=== PATIENT | male | born 1955 | race Caucasian/White ===

== ENCOUNTER 2024-03-25 13:25 | Inpatient (IN) | payer MEDICARE, SELFPAY ==
[2024-03-25] VITALS (16 sets, daily range): BP systolic 101–131; BP diastolic 71–95; PULSE 2; BMI 20.5
--- NOTE | 2024-03-25 10:23 | ED.GENMED ---
History of Present Illness
General
Chief Complaint: Breathing Problem
Source: patient and ambulance crew
Exam Limitations: none
Time Seen by Provider: 03/25/24 10:19
Nursing documentation reviewed up to this point in time: agreed with
History of Present Illness
History of Present Illness:
68-year-old male with a past medical history of COPD, atrial fibrillation, polysubstance use who presents to the emergency department from home via EMS for evaluation of shortness of breath. Patient reports that last night around 6 PM he took his
dog for a walk and when he returned from the walk he was severely short of breath. He says that overnight symptoms worsened 'and I felt like I was going to because I could not breathe.' This morning decided to call EMS to come to the hospital.
He denies any chest pain. He has been coughing for the past few days he says�nonproductive cough. He says that last night he had some chills briefly but no significant fever or chills otherwise. Denies any swelling in the legs. He denies any
other complaints on review of systems. Per EMS on arrival he was hypoxic and labored breathing with significant wheezing; he was given 10 mg of IV Decadron, DuoNeb x 2, albuterol x 1. Patient reports slight subjective improvement.
Past History
Past History
ED Past Medical History: COPD and Other (MS)
ED Past Surgical History: Negative Cardiac
Social History
Tobacco: Smoker
Alcohol: Occasional
Drug: Former user
Personal:
Living: alone
Employment: Retired
Family History
Family History: Other (Noncontributory)
Review of Systems
Review of Systems
All Other Systems: ROS reviewed and negative except as documented in HPI and ROS
Constitutional: Reports chills; Denies fever
EENT: Denies sore throat or runny nose
Respiratory: Reports cough and trouble breathing
Cardiac: Denies chest pain or palpitations
ABD/GI: Denies abdominal pain, nausea or vomiting
: Denies dysuria, frequency or flank pain
Musculoskeletal: Denies edema, neck pain or back pain
Neurological: Denies dizzy or headache
Phy Exam
Physical Exam
Physical Exam:
General: Awake, alert, oriented x3; moderate respiratory distress
Head: Normocephalic, atraumatic
Eyes: Conjunctiva normal, sclera anicteric
Throat: Airway intact, handling secretions
Neck: Trachea midline, no JVD
Lungs: Patient is tachypneic, increased work of breathing, tripod/prefers upright position, speaking in 1-2 word sentences; he has diffuse bilateral wheezing with prolonged expiratory phase and diminished air movement throughout all lung cancino
Heart: Tachycardia with regular rhythm, no murmurs, gallops, or rubs
Abd: Soft, non distended, nontender
Neuro: No gross deficits
Extremities: No edema in extremities, equal pulses in all extremities
Scores
Heart Failure Risk
Heart Failure Risk Score: Not Applicable
Heart Score for Chest Pain Patients
STEMI patient?: Not applicable
Withdrawal Assessment of Alcohol
Withdrawal Assessment Completed?: Not applicable
Course
Orders/Labs/Results
Orders:
Orders
03/25/24 10:19
Electrocardiogram (*1) Urgent
Reason for Study: Shortness of Breath
EKG- Treatment ONCE
CR Chest Portable - 1 View Urgent
Comment:
Reason For Exam: sob
Reason Study Needs to be Portable: Unable to Transport
03/25/24 10:20
Ipratropium/Albuterol Sulfate [Duoneb] 3 ml INH R NOW STA
03/25/24 10:21
Bipap [RESP] Urgent
Patient to use own unit?: No
Inspiratory Pressure (cm H2O): 14
Expiratory Pressure (cm H2O): 5
03/25/24 10:38
COVID-19 Antigen Urgent
Source: Nasal Swab
Complete Blood Count/With Diff Urgent
Venous Blood Gas Urgent
%Oxygen/Room Air: 95
Influenza A+B Rapid Molecular Urgent
PILO Source: Nasal Swab
Specimen Description:
03/25/24 10:59
Comprehensive Metabolic Panel Urgent
NT-proBNP Urgent
Troponin I Urgent
03/25/24 11:15
Azithromycin 500 mg IVPB NOW Azithromycin 500 mg/250 ml [Zithromax Infusion] 500 mg in 250 ml IV NOW
CefTRIAXone [Rocephin] 1,000 mg IV NOW STA
03/25/24 11:30
Blood Culture Q30M
PILO Source: Blood/Venous
Specimen Description:
03/25/24 12:00
Blood Culture Q30M
PILO Source: Blood/Venous
Specimen Description:
Abnormal Lab Results
03/25/24
10:38
WBC 16.0 H 10^3/uL
(4.8-10.8)
RBC 4.19 L 10^6/uL
(4.70-6.10)
MCV 95.5 H fL
(80.0-94.0)
MCH 32.7 H pg
(27.0-31.0)
Abs Immat Gran (auto) 0.1 H 10^3/uL
(0-0.05)
Absolute Neuts (auto) 14.2 H 10^3/uL
(1.4-6.5)
Absolute Lymphs (auto) 0.5 L 10^3/uL
(1.2-3.4)
Absolute Monos (auto) 1.2 H 10^3/uL
(0.1-0.6)
Neutrophils % 88.5 H %
(42.2-75.2)
Lymphocytes % 3.4 L %
(20.5-51.1)
VBG pCO2 53 H mmHg
(35-48)
VBG pO2 70 H mmHg
(30-50)
VBG HCO3 28.6 H mmol/L
(22-27)
03/25/24 10:38
Vital Signs
Initial and Last Documented VS:
Initial Vital Signs
Pulse Resp Pulse Ox
106 22 93
03/25/24 10:17 03/25/24 10:17 03/25/24 10:17
Last Documented Vital Signs
Pulse Resp BP Pulse Ox
106 22 131/95 93
03/25/24 10:17 03/25/24 10:17 03/25/24 10:23 03/25/24 10:17
MDM/Problems Addressed
Differential Diagnosis Includes:
COPD exacerbation/bronchitis, CHF, pneumonia
MDM/Problems Addressed:
68-year-old male presents to the ER via EMS in moderate respiratory distress complaining of severe shortness of breath. He did receive Decadron, DuoNeb x 2, albuterol x 1 prehospital. He was hypoxic in the field received supplemental oxygen. On
arrival here oxygen low normal on room air, he is tachypneic with increased work of breathing as above. Exam as above. IV placed labs sent off including a CBC and a CMP, proBNP, troponin. Swab for COVID influenza. Call for stat chest x-ray.
Obtain EKG. Treat with additional DuoNeb. Placed on BiPAP. Send venous blood gas. Monitor closely reassess after the above.
Clinical reassessment patient appears much more comfortable on BiPAP. Still with significant wheezing. Oxygenation acceptable. Reviewed initial labs his CBC shows a leukocytosis to 16; chest x-ray reviewed by me shows no pneumonia or
pneumothorax. Nevertheless with leukocytosis will send off blood cultures due to multiple SIRS criteria. Can cover with antibiotic for possible occult pneumonia. ABG reviewed, pCO2 53. Will plan to admit for continued management of suspected
acute respiratory failure with hypoxia and hypercapnia and COPD exacerbation.
Chronic conditions affecting care:
COPD, atrial fibrillation
*Radiology
Radiology exam reviewed: preliminary read by ED provider and radiology read reviewed
*Pulse Oximetry
Patient hypoxic: no
*EKG
Interpreted by ED Provider?: Yes
Heart Rate: 106
Rate: tachycardiac
Rhythm: sinus tachycardia
[place]: right axis deviation
Interval: normal interval
QRS Pattern: normal QRS
Ischemia: ST depression (Inferior)
*Critical Care Note
Total Time (30-74mins, 75-104mins- exclusive of procedures): 30
comment:
Critical care statement: A total of 30 minutes of critical care time was provided for this patient. This includes management of unstable vital signs, evaluation of the patient at bedside, frequent reassessment, discussion with
consultants/hospitalist, and review of pertinent medical records. This time was separate from time utilized to perform any aforementioned documented procedures
Data Reviewed
Review of Other/Old Records Reveals: Labs and Records
Source: patient, records and ambulance crew
Patient Management
Discussion with other providers: Hospitalist (Discussed with hospitalist)
Escalation/DeEscalation of care consider admission/obs:
Admission indicated
ED Attending Note
-
Portions of this chart may have been created with voice recognition software.� Occasional wrong word or��sound alike� substitutions may have occurred due to the inherent limitations of voice recognition software.
Discharge Plan
Departure
Patient Disposition: Admit
Date of Disposition: 03/25/24
Time of Disposition: 11:17
Admit to doctor: [place]
Presentation/result/management discussed w/ accepting MD/DO: Hospitalist
Discharge Problem:
Acute respiratory failure with hypoxia and hypercapnia, COPD exacerbation
Prescriptions:
No Action
clonazepam 1 MG tablet
2 mg PO HS
Patient Comments:
03/05/2020: last filled 02/09/20, 90 tabs for 30 days from [facility]
buprenorphine-naloxone 8-2 mg Tablet, Sublingual
0.5 tab SUBLINGUAL DAILY
Interventions
Interventions:
*Risk Screen - Suicide Last Done: 03/25/24 10:30
*General Assessment Last Done: 03/25/24 10:30
*Neglect/Abuse Screening Last Done: 03/25/24 10:30
ED- Fall Risk Assessment Last Done: 03/25/24 10:21
*ED COVID-19 Vaccine History Last Done: 03/25/24 10:30
Discharge Date and Time
Print Language: NAURUAN
[2024-03-25] MEDS: DUONEB 3 ML INH ×2 (10:34→19:13)
[2024-03-25 10:48] LABS: % Basophils 0.2 % (0-2); % Immature Granulocytes 0.4 % (0-0.5); % Lymphocytes 3.4 % (20.5-51.1); % Monocytes 7.5 % (1.7-9.3); % Neutrophils 88.5 % (42.2-75.2); Absolute Immature Granulocytes 0.1 10^3/uL (0-0.05); Absolute Lymphocytes 0.5 10^3/uL (1.2-3.4); Absolute Monocytes 1.2 10^3/uL (0.1-0.6); Absolute Neutrophils 14.2 10^3/uL (1.4-6.5); Hemoglobin 13.7 g/dL (13.0-18.0); Mean Corp Hgb Conc. 34.3 g/dL (33.0-37.0); Mean Corpuscular Hgb 32.7 pg (27.0-31.0); Mean Corpuscular Volume 95.5 fL (80.0-94.0); Mean Platelet Volume 9.2 fL (7.4-10.4); Nucleated Red Blood Cells % 0 % (-); Platelet Count 209 10^3/uL (130-400); Red Blood Cell Count 4.19 10^6/uL (4.70-6.10); Red Cell Dist. Width 11.9 % (11.5-14.5)
[2024-03-25 10:50] LABS: Venous Blood Gas B.E. 1.7 mmol/L (-4 to +4); Venous Blood Gas HCO3 28.6 mmol/L (22-27); Venous Blood Gas O2 Sat % 94.6 %; Venous Blood Gas pCO2 53 mmHg (35-48); Venous Blood Gas pH 7.34 (7.32-7.43); Venous Blood Gas pO2 70 mmHg (30-50)
[2024-03-25 10:51] LABS: Venous Blood Gas O2 Therapy 95
[2024-03-25 11:06] LABS: COVID-19 Antigen Negative (Negative)
[2024-03-25] MEDS: ROCEPHIN 1000 MG IV (12:07)
[2024-03-25] MEDS: ZITHROMAX INFUSION 250 IV (12:13)
[2024-03-25 12:18] LABS: ALT (SGPT) 21 U/L (0-50); AST (SGOT) 32 U/L (17-59); Albumin 4.7 g/dl (3.5-5.0); Alkaline Phosphatase 76 U/L (38-126); Blood Urea Nitrogen 14 mg/dl (9-20); Calcium 9.2 mg/dl (8.4-10.2); Carbon Dioxide 29 mmol/L (22-30); Chloride 100 mmol/L (98-107); Estimated Creatinine Clearance 108 ml/min; Glucose 150 mg/dl (70-99); Potassium 4.2 mmol/L (3.5-5.1); Sodium 137 mmol/L (135-145); Total Bilirubin 1.5 mg/dl (0.2-1.3); Total Protein 7.2 g/dl (6.3-8.2); eGFR > 60.00
[2024-03-25 12:28] LABS: NT-proBNP 735 pg/ml; Troponin I < 0.012 ng/ml
--- NOTE | 2024-03-25 13:07 | HPS.HSE ---
Family Physician
-
Family Physician: * NONE
Chief Complaint
-
shortness of breath
History of Present Illness
68-year-old male past medical history of tobacco abuse who is presenting from home with complaints of shortness of breath. Patient reports last night around 6 PM he took his dog out for a walk and upon returning he felt significantly short of
breath. Patient stated he is shortness of breath was so severe he felt like he was going to . Patient slept overnight. Stated this morning he was still feeling severely short of breath and called EMS. States of shortness of breath with
intermittent productive cough. Phlegm with mild brown color. States of some chills overnight. No fevers. Denies any chest pain. Denies any lower extremity swelling. Denies any PND orthopnea. Continues to smokes multiple cigarettes a day.
Said he had 2-3 beers last night. Also states of history of multiple sclerosis and follows up with Dr. Hernandez as outpatient. En route to the EMS patient received 10 mg IV Decadron and bronchodilators. Patient was placed on BiPAP in the ER and stated
his breathing is slowly improving.
Medical History
Past Medical History
Past Medical History: Reports Other
Additional Past Medical History:
Multiple sclerosis
Hx of polysubstance abuse
Tobacco abuse
Paroxysmal atrial fibrillation
Hx of pericarditis
Past Surgical History: Reports None
Social History
Tobacco: Smoker
Alcohol: Occasional (multiple times week)
Drug: Former User
Family History
Family History: Not pertinent
Allergies / Home Medications
Allergies reflects when Allergies were last updated in [employer].
Home Medications with original date entered in [employer]
Allergy/Medication List:
Allergies
Allergy/AdvReac Type Severity Reaction Status Date / Time
NKA - No Known Allergies Allergy Unknown Uncoded 03/25/24 10:35
Home Medications
clonazepam 1 mg tablet 2 mg PO HS 03/05/20
buprenorphine 8 mg-naloxone 2 mg sublingual tablet 0.5 tab sublingual DAILY 03/25/24
clonazepam 1 mg tablet 1 mg PO DAILYPRN PRN ANXIETY 03/25/24
Review of Systems
-
History Source: Patient
A 12 point ROS was completed and negative except as noted: Yes
Physical Exam
Vital Signs
Vital Signs
Pulse Resp BP Pulse Ox
90 15 102/75 95
03/25/24 12:00 03/25/24 12:00 03/25/24 12:00 03/25/24 12:00
Physical Exam
General: Respiratory Distress, Appears Chronically Ill and Other (on bipap)
HEENT: NormoCephalic, Moist mucous membranes and Atraumatic
Respiratory: Wheezes (severe b/l exp wheezing. no stridor. )
Cardiac: S1/S2 and Regular Rhythm; No Murmur or Rub
GI: Soft, Non Tender, Non Distended and Normal Bowel Sounds; No Organomegaly
Rectal: Deferred by Provider
Musculoskeletal: No Clubbing, No Cyanosis and No Edema
Skin: No Rash
Neuro: Awake, Alert, Oriented, AO x 3 and Nonfocal/grossly intact
Psych: Calm
Laboratory Results
-
03/25/24 10:38
03/25/24 11:40
Laboratory Results
Total Bilirubin 1.5 mg/dl (0.2-1.3) H 03/25/24 11:40
AST 32 U/L (17-59) 03/25/24 11:40
ALT 21 U/L (0-50) 03/25/24 11:40
Alkaline Phosphatase 76 U/L (38-126) 03/25/24 11:40
Troponin I < 0.012 ng/ml 03/25/24 11:40
Data Reviewed
-
Diagnostic Radiology: Image Personally Visualized and interpreted, Report Reviewed by me and Discussed with Patient
Lab Data: Labs Reviewed by me and Discussed with Patient
Impression/Plan
-
#Acute hypoxic and hypercapnic respiratory failure
#Acute COPD exacerbation
Chest x-ray on admission done negative for pleural effusion or pneumothorax or infiltrate.
Start patient on 6 mg Decadron every 12 hours. Received 10mg Decadron en-route via EMS.
Currently on BiPAP. Patient can take breaks for meals off BiPAP.
Continue with 12/5 BiPAP setting
IF Patient with severe tachypnea, worsening hypoxemia or getting tired may require intubation.
Start patient on bronchodilators standing and as needed
Start patient on azithromycin
Sputum sample
proBNP 735. Troponin negative.
Pulmonary evaluation
#Tobacco abuse
#Alcohol abuse
#History of polysubstance abuse
Counseled on tobacco and alcohol complete cessation
Alcohol withdrawal protocol
Refused nicotine patch
Continue with Suboxone
#Paroxysmal atrial fibrillation
#Hx of pericardial effusion/pericarditis
not on any rate control or anticoagulation. Monitor on telemetry.
#Multiple sclerosis--continue with Klonopin for spasms
DVT prophylaxis with Lovenox
I spent a total of 82 minutes with the patient or on the floor. More than 50% of this time involved counseling and coordination of care.
--- NOTE | 2024-03-25 15:16 | EDRN ---
the pt is requesting to eat food and drink water stating 'i have not eaten or drank anything since yesterday. I also need my Suboxone. If I don't have it I will get very sick.' The pt is currently on BIPAP Oxygen mask. This COURT CLERK contacted the
admitting provider Dr Pierre who confirmed this pt can eat regular diet and the pt can have his medication as is ordered in his admission orders. this COURT CLERK contact respiratory therapist for assistance and also contact pharmacy to send up this pts
medication.
--- NOTE | 2024-03-25 15:29 | EDRN ---
Respiratory therapist removed this pts BIPAP and placed this pt on 4L NC O2 at this time. pt was provided a boxed lunch and water to drink per this pts request and per admission orders
[2024-03-25] MEDS: SUBUTEX 4 MG SL (15:30)
[2024-03-25 16:19] LABS: Alcohol None Detected
[2024-03-25] MEDS: DUONEB INH (17:17)
[2024-03-25] MEDS: LOVENOX SC (17:50)
[2024-03-25 18:13] LABS: GGTP 21 U/L (15-73)
[2024-03-25 18:20] LABS: B-Hydroxybutyrate 0.14 mmol/L (0.02-0.27)
[2024-03-25] MEDS: THIAMINE INJECTION 200 MG IV (20:21)
[2024-03-25] MEDS: KLONOPIN 2 MG PO (21:47)
[2024-03-26] VITALS (11 sets, daily range): BP systolic 101–137; BP diastolic 60–77; PULSE 81; O2SAT 94
[2024-03-26 04:19] LABS: Urine Albumin Trace (Neg - Trace); Urine Bilirubin Negative (Negative); Urine Character Clear (Clear); Urine Color Yellow; Urine Glucose Negative (Negative); Urine Ketone 1+ (Negative); Urine Leukocyte Negative (Negative); Urine Nitrite Negative (Negative); Urine Occult Blood Negative (Negative); Urine Urobilinogen Negative (Neg - 1+)
[2024-03-26 04:21] LABS: Amphetamines Negative (Negative); Barbiturates Negative (Negative); Benzodiazepines Positive (Negative); Buprenorphine Positive (Negative); Cocaine Negative (Negative); Marijuana Positive (Negative); Methadone Negative (Negative); Methamphetamines Negative (Negative); Opiates Negative (Negative); Phencyclidine Negative (Negative); Tricyclic Antidepressants Negative (Negative)
--- NOTE | 2024-03-26 04:31 | PTCARENOTE ---
Pt resting comfortably in bed. AAOx3. SaO2 97% on 2LNC. FELDMAN, lungs with scattered rhonchi, inspiratory/expiratory wheezes, moist, nonproductive cough. Reports feeling much improved since yesterday. Call [facility] and belongings within reach. Able to
make needs known. Care ongoing.
[2024-03-26 04:33] LABS: Fentanyl, Urine Negative (Negative)
[2024-03-26 04:37] LABS: % Basophils 0.1 % (0-2); % Immature Granulocytes 0.7 % (0-0.5); % Lymphocytes 3.3 % (20.5-51.1); % Neutrophils 90.9 % (42.2-75.2); Absolute Immature Granulocytes 0.1 10^3/uL (0-0.05); Absolute Lymphocytes 0.6 10^3/uL (1.2-3.4); Absolute Monocytes 0.9 10^3/uL (0.1-0.6); Absolute Neutrophils 16.1 10^3/uL (1.4-6.5); Hematocrit 43.6 % (39.0-52.0); Hemoglobin 14.5 g/dL (13.0-18.0); Mean Corp Hgb Conc. 33.3 g/dL (33.0-37.0); Mean Corpuscular Hgb 32.8 pg (27.0-31.0); Mean Corpuscular Volume 98.6 fL (80.0-94.0); Mean Platelet Volume 9.8 fL (7.4-10.4); Nucleated Red Blood Cells % 0 % (-); Platelet Count 217 10^3/uL (130-400); Red Blood Cell Count 4.42 10^6/uL (4.70-6.10); Red Cell Dist. Width 12.1 % (11.5-14.5); White Blood Cell Count 17.7 10^3/uL (4.8-10.8)
[2024-03-26 04:47] LABS: INR 1.08; PT 14.3 Sec (11.4-14.6)
[2024-03-26 04:48] LABS: APTT 32.3 Sec (23.4-35.0)
[2024-03-26 05:00] LABS: Blood Urea Nitrogen 16 mg/dl (9-20); Calcium 9.4 mg/dl (8.4-10.2); Carbon Dioxide 29 mmol/L (22-30); Chloride 101 mmol/L (98-107); Estimated Creatinine Clearance 108 ml/min; Glucose 128 mg/dl (70-99); Phosphorus 3.4 mg/dl (2.5-4.5); Potassium 4.8 mmol/L (3.5-5.1); Sodium 141 mmol/L (135-145); eGFR > 60.00
[2024-03-26] MEDS: DUONEB 3 ML INH ×4 (08:08→20:43)
[2024-03-26] MEDS: ZITHROMAX 255 MG IV (08:17)
[2024-03-26] MEDS: SUBUTEX 4 MG SL (08:19)
[2024-03-26] MEDS: FOLVITE 1 MG PO (08:20)
[2024-03-26] MEDS: THIAMINE INJECTION 200 MG IV ×2 (08:20→22:09)
[2024-03-26] MEDS: DECADRON 6 MG IV ×2 (08:20→22:07)
[2024-03-26] MEDS: KLONOPIN 1 MG PO (10:01)
--- NOTE | 2024-03-26 11:37 | W.PN.HOSP.TC ---
Today's Communication/Plan
-
Continue with systemic corticosteroid
Continue with bronchodilators
Continue to wean oxygen as tolerated
BiPAP nightly as needed
Transfer out of IMU
Assessment / Plan
Assessment / Plan
General: Respiratory Distress, Appears Chronically Ill, less tachypneic today
HEENT: NormoCephalic, Moist mucous membranes and Atraumatic
Respiratory: Wheezes (severe b/l wheezing. no stridor. )
Cardiac: S1/S2 and Regular Rhythm; No Murmur or Rub
GI: Soft, Non Tender, Non Distended and Normal Bowel Sounds; No Organomegaly
Rectal: Deferred by Provider
Musculoskeletal: No Clubbing, No Cyanosis and No Edema
Skin: No Rash
Neuro: Awake, Alert, Oriented, AO x 3 and Nonfocal/grossly intact
Psych: Calm
#Acute hypoxic and hypercapnic respiratory failure
#Acute COPD exacerbation
Chest x-ray on admission done negative for pleural effusion or pneumothorax or infiltrate.
Start patient on 6 mg Decadron every 12 hours. Received 10mg Decadron en-route via EMS.
BiPAP as needed
Improvement with IV steroids.
Start patient on bronchodilators standing and as needed
Start patient on azithromycin
Sputum sample
proBNP 735. Troponin negative.
Pulmonary evaluation
#Tobacco abuse
#Alcohol abuse
#History of polysubstance abuse
Counseled on tobacco and alcohol complete cessation
Alcohol withdrawal protocol
Refused nicotine patch
Continue with Suboxone
#Paroxysmal atrial fibrillation
#Hx of pericardial effusion/pericarditis
not on any rate control or anticoagulation. Monitor on telemetry.
#Multiple sclerosis--continue with Klonopin for spasms
DVT prophylaxis with Lovenox
Anticipated Discharge: > 48 hours
Subjective/Interval History
-
Date of Service: March 26, 2024
States feeling better compared to yesterday
remains on oxygen
remains with productive cough
Objective Data
-
Labs:
Laboratory Results
03/26/24
04:01
WBC 17.7 H
Hgb 14.5
Hct 43.6
Plt Count 217
PT 14.3
INR 1.08
APTT 32.3
Sodium 141
Potassium 4.8
Chloride 101
Carbon Dioxide 29
BUN 16
Creatinine 0.5 L
Glucose 128 H
Calcium 9.4
Vital Signs:
Vital Signs
Temp Pulse Resp BP Pulse Ox
97.0 F 77 14 106/77 92
03/26/24 07:30 03/26/24 11:00 03/26/24 11:00 03/26/24 10:00 03/26/24 11:00
I&O
03/25/24 03/26/24 03/27/24
06:59 06:59 06:59
Intake Total 350 / 350
Output Total 400 / 400
Balance -400 / -400 350 / 350
Data Reviewed
-
Total Time Spent with Patient (in minutes): 55
--- NOTE | 2024-03-26 11:39 | CM ---
Patient with Hx MS, tobacco use, polysubstance abuse. O2 2L per nurse. Declined BiPAP HS. Receiving IV Abx, Duonebs, IV Decadron. MSAS 0 per nursing.
Met with patient who resides alone in a 2nd floor walk up apartment.
He was independent in ADLs and ambulation.
The patient says he walks 1-2 miles/day in a park with his dog, and uses a walking stick.
Patient admits to a fall about 2-3 months ago.
No food/housing/utility/transport insecurities.
Patient states he receives SS and a [employer].
He has no car/doesn't drive however 2 daughters Alisa & Lawanda drive him as needed.
Daughter Alisa takes him food shopping.
His ex- also helps him at times.
Patient mentions daughter Meera who is nurse with [employer], lives in [facility] - she was on the phone with him when CM entered room.
Patient may stay with Alisa at discharge - she works from home.
DME - [facility]
No prior VN or SNF.
PCP - Dr Jim at [facility]
Pharmacy - [facility]
CM Consult: Substance Abuse
Patient denies any active issues with alcohol/drugs.
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
Patient volunteers that he sees a doc at a clinic in [place] for his Subutex.
[facility]
Request to Dr Pierre for PT Eval due to Dx MS with fall.
Plan follow up after seen by PT/OT.
--- NOTE | 2024-03-26 12:56 | CON.PUL ---
Consultation
Consultation Request
Date/Time Consultation Requested: 03/25/2024
Date/Time Consultation Performed: 03/26/2024
Requesting Provider: Dr. Pierre
Performing Provider: Dr. Jose Nino
Reason for Consultation: Acute exacerbation of COPD
Medical History
-
History of Present Illness:
68-year-old male with past medical history significant for tobacco abuse presented from home complaining of shortness of breath with exertion that was progressive. Symptoms started the night prior to admission while he was walking his dog.
Shortness of breath was severe that became to minimal effort. He went to bed but woke up still short of breath in the morning and called EMS for evaluation.
Reports intermittent phlegm production of mild brown-colored sputum. Denies any fevers. Reports some chills prior to admission.
Denies lightheadedness, palpitations, PND, orthopnea leg edema.
He continues to drink beer daily. Used to smoke cigarettes daily prior to admission.
Patient has history of multiple sclerosis and follows up with neurology locally.
Due to increased work of breathing he was placed on BiPAP in the emergency room.
We were consulted for further evaluation.
Past Medical History
Past Medical History: Other (See assessment and plan)
Social History
Tobacco: Smoker
Alcohol: Occasional (Multiple times per week/beer)
Drug: Former User
Family History
Family History: Reviewed & Not Pertinent
Allergies / Home Medications
Allergies
Allergy/AdvReac Type Severity Reaction Status Date / Time
NKA - No Known Allergies Allergy Unknown Uncoded 03/25/24 10:35
Home Medications
�Medication �Instructions �Recorded �Confirmed �Last Taken �Type
clonazepam 1 mg tablet 2 mg PO HS Mental Health/Anxiety 03/05/20 03/25/24 03/05/20 History
buprenorphine 8 mg-naloxone 2 mg 0.5 tab sublingual DAILY withdrawal 03/25/24 03/25/24 Unknown History
sublingual tablet
clonazepam 1 mg tablet 1 mg PO DAILYPRN PRN ANXIETY 03/25/24 03/25/24 Unknown History
Review of Systems
-
History Source: Patient
All other systems: Negative unless noted
Vitals / Labs / Diagnostic Testing
Vital Signs
Temp Pulse Resp BP Pulse Ox
97.7 F 76 14 106/77 94
03/26/24 11:42 03/26/24 11:49 03/26/24 11:49 03/26/24 10:00 03/26/24 11:49
Lab Data
03/26/24 04:01
03/26/24 04:01
Laboratory Results
03/26/24
04:01
PT 14.3
INR 1.08
APTT 32.3
Microbiology
03/26/24 08:41 Sputum Gram Stain - Preliminary
03/25/24 11:40 Blood/Venous Blood Culture - Preliminary
No Growth in 24 hours- Final report to follow
03/25/24 11:40 Blood/Venous Blood Culture - Preliminary
No Growth in 24 hours- Final report to follow
03/25/24 10:38 Nasal Swab Influenza Types A & B ([facility]) - Final
Negative for Influenza A & B, NAAT
Negative results must be combined with clinical observations
and patient history.
Nucleic Acid Amplification test (NAAT)performed on the
[employer] platform.
Diagnostic Testing:
Physical Exam
-
HEENT: Normocephalic
Cardiovascular: S1/S2
Respiratory: Wheeze (Expiratory bilaterally) and Rhonchi
GI: Soft and Non Distended
Neurology: Awake, Alert, AO x 3 and No Motor Deficits
Skin: Warm
General: Comfortable and Other ( able to speak in full sentences)
Assessment
-
68-year-old man who is a smoker, prior emphysema on CAT scan in 2019 not on inhalers, came complaining of 1 day of shortness of breath that was progressive to minimal effort. Found to have increased work of breathing and bronchospasm in the
emergency room. Required BiPAP therapy. We were consulted for evaluation
Acute respiratory distress due to acute hypoxemic and hypercapnic respiratory failure requiring noninvasive mechanical ventilation
VBG 03/25/2024 7.34/53/70
UDS positive for benzos and marijuana/buprenorphine
Acute exacerbation of COPD
Chest x-ray: Reviewed no acute infiltrates-hyperinflation.
Normal proBNP
Conditions present prior admission:
Emphysema based on CT chest from 2019: Moderate in degree back in 2020. Upper and lower bronchial thickening. No lung nodules at that time. Moderate pericardial effusion was noted at that time.
Multiple sclerosis per patient report
Tobacco abuse
Almost daily beer use
Former drug user
Echocardiogram in 2020: Normal LVEF. Normal right ventricular size and function. Small pericardial effusion without evidence of hemodynamic compromise. Dilated aortic root 4. 1 cm
Assessment and plan:
Clinical picture is consistent with acute exacerbation of COPD: So far no evidence for infection.
VBG suggest slight hypercapnia. BNP without suggestion of chronic CO2 retention, there is no evidence for compensatory metabolic alkalosis.
Chest x-ray is clear-hyperinflation with flattened diaphragms.
COVID and influenza negative
Afebrile
Agree with current care with IV dexamethasone
DuoNeb 4 times a day
Smoking cessation encouraged
Agree with a course of azithromycin, can transition to oral and complete 5 days
Sputum culture if possible-pending
Blood cultures negative
-
No longer any increased work of breathing but remains bronchospastic
Mental status is normal
Discontinue BiPAP. No longer needed
Oxygen supplementation to maintain pulse ox above 90%, currently on 2 L. Home oxygen assessment prior to discharge
-
Recommend outpatient pulmonary follow-up.
Patient states that he usually does not follow-up with doctors
Does report exertional dyspnea with hills otherwise able to perform activities of daily without restriction. He was not aware of emphysema on CAT scan.
In 2020 CAT scan demonstrated moderate emphysematous changes. No follow-up with pulmonary.
With benefit from lung cancer screening as well as pulmonary function testing-information will be left in the chart. He will decide at some point whether he will follow-up.
Understands progressive lung disease with ongoing smoking.
Information will be left in the chart if patient would like to follow-up.
-
Smoking cessation encouraged.
-
Monitor for withdrawal of alcohol.
-
Will follow
--- NOTE | 2024-03-26 16:05 | PTCARENOTE ---
Called report to receiving RN on [facility]. Patient on 2L NC, other vital signs stable. Pt conversing with family member in room, able to get oob to toilet and sit in chair. Worked with PT/OT this shift. RN provided education on plan of care and
medications for this shift and going forward. Pt endorsed motivation to carry out cessation of smoking to RN. RN offered to reach out to MD to order nicotine patch for patient, but patient declined offer.
[2024-03-26] MEDS: LOVENOX SC (17:43)
[2024-03-26] MEDS: KLONOPIN 2 MG PO (22:07)
[2024-03-27 03:28] VITALS: BP 109/73
[2024-03-27 07:00] VITALS: BP 104/67
[2024-03-27] MEDS: DUONEB 3 ML INH ×4 (08:03→20:31)
[2024-03-27 08:40] VITALS: PULSE 76; O2SAT 93
[2024-03-27 08:44] LABS: % Basophils 0.1 % (0-2); % Immature Granulocytes 0.5 % (0-0.5); % Lymphocytes 3.5 % (20.5-51.1); % Monocytes 2.3 % (1.7-9.3); % Neutrophils 93.6 % (42.2-75.2); Absolute Immature Granulocytes 0.1 10^3/uL (0-0.05); Absolute Lymphocytes 0.6 10^3/uL (1.2-3.4); Absolute Monocytes 0.4 10^3/uL (0.1-0.6); Absolute Neutrophils 17.1 10^3/uL (1.4-6.5); Hematocrit 38.1 % (39.0-52.0); Hemoglobin 12.6 g/dL (13.0-18.0); Mean Corp Hgb Conc. 33.1 g/dL (33.0-37.0); Mean Corpuscular Hgb 32.6 pg (27.0-31.0); Mean Corpuscular Volume 98.4 fL (80.0-94.0); Nucleated Red Blood Cells % 0 % (-); Platelet Count 224 10^3/uL (130-400); Red Blood Cell Count 3.87 10^6/uL (4.70-6.10); Red Cell Dist. Width 12.4 % (11.5-14.5); White Blood Cell Count 18.3 10^3/uL (4.8-10.8)
[2024-03-27 09:11] LABS: Blood Urea Nitrogen 23 mg/dl (9-20); Carbon Dioxide 27 mmol/L (22-30); Chloride 102 mmol/L (98-107); Estimated Creatinine Clearance 108 ml/min; Glucose 117 mg/dl (70-99); Potassium 4.6 mmol/L (3.5-5.1); Sodium 138 mmol/L (135-145); eGFR > 60.00
[2024-03-27] MEDS: DECADRON 6 MG IV ×2 (10:07→21:00)
[2024-03-27] MEDS: FOLVITE 1 MG PO (10:08)
[2024-03-27] MEDS: THIAMINE INJECTION 200 MG IV ×2 (10:09→21:00)
[2024-03-27] MEDS: SUBUTEX 4 MG SL (10:11)
[2024-03-27] MEDS: ZITHROMAX INFUSION 250 IV (10:14)
--- NOTE | 2024-03-27 11:14 | W.PN.PUL.V3 ---
Today's Communication / Plan
-
No change in steroids.
Continue nebulizers.
Finite course of antibiotics.
Wean oxygen
Assessment
-
68-year-old man who is a smoker, prior emphysema on CAT scan in 2020 not on inhalers, came complaining of 1 day of shortness of breath that was progressive to minimal effort. Found to have increased work of breathing and bronchospasm in the
emergency room. Required BiPAP therapy. We were consulted for evaluation
Acute respiratory distress due to acute hypoxemic and hypercapnic respiratory failure requiring noninvasive mechanical ventilation
VBG 03/25/2024 7.34/53/70
UDS positive for benzos and marijuana/buprenorphine
Acute exacerbation of COPD
Chest x-ray: Reviewed no acute infiltrates-hyperinflation.
Normal proBNP
Conditions present prior admission:
Emphysema based on CT chest from 2019: Moderate in degree back in 2020. Upper and lower bronchial thickening. No lung nodules at that time. Moderate pericardial effusion was noted at that time.
Multiple sclerosis per patient report
Tobacco abuse
Almost daily beer use
Former drug user
Echocardiogram in 2020: Normal LVEF. Normal right ventricular size and function. Small pericardial effusion without evidence of hemodynamic compromise. Dilated aortic root 4. 1 cm
Plan
Respiratory status slowly improving but still tenuous with significant wheezing.
Supplemental oxygen as needed..
And IV/BiPAP as needed-no longer requiring
Assess discharge supplemental oxygen needs the time of discharge-patient disheartened, however, I explained that usually we can wean this off over several weeks and hopefully we can him back to his baseline-walking his dog 2 miles a day.
Decadron 6 mg IV every 12 hours.
Duo nebs.
Aspiration precautions.
Mucolytic's
Antitussives if needed.
Cultures reviewed.
Viral tests negative.
Agree with course of azithromycin-complete 5 days
Monitor for alcohol withdrawal
DVT prophylaxis-on Lovenox.
Nutrition
Early mobilization.
Outpatient pulmonary hphlde-uf-OMTa, inhalers, wean oxygen and, smoking cessation counseling, yearly low-dose lung cancer screening. CT, etc.
Subjective Data
-
Date of Service:
Date of Service: March 27, 2024
Chief Complaint: Pulmonary Follow Up and Dyspnea Follow Up
Subjective:
Still significant wheezing and shortness of breath with exertion, though recovery is faster, no chest pain, minimal productive cough, no pleurisy, no abdominal pain, or increased leg swelling.
Review of Systems
General: Other (per HPI)
Objective Data
Data Reviewed
Vital Signs / I&O:
Vital Signs
Temp Pulse Resp BP Pulse Ox
98.2 F 64 18 104/67 92
03/27/24 07:00 03/27/24 07:00 03/27/24 07:00 03/27/24 07:00 03/27/24 07:00
Intake and Output
03/26/24 03/27/24 03/28/24
06:59 06:59 06:59
Intake Total 1890 / 1890
Output Total 400 / 400 1200 / 1200
Balance -400 / -400 690 / 690
SaO2: 92
Nasal Cannula flow liters per minute: 1
Physical Exam
General: Respiratory Distress (n) and Comfortable
HEENT: Moist Mucous Membranes
Cardiovascular: Regular Rhythm
Respiratory: Clear ( diminished breath sounds, hyperinflation and prolonged expiratory time), Wheeze ( expiratory), Crackles (n), Rhonchi (n), Non-Labored Respirations, Accessory Resp Muscle Use (n) and Stridor (n)
GI: Soft, Non Distended and Non Tender
Neurology: Awake and No Motor Deficits
Skin: Warm, Good Color, Cyanosis (n), Jaundice (n) and Rash (n)
Labs/Micro/Reports
Lab Data
03/27/24 06:47
03/27/24 06:47
Microbiology
03/26/24 08:41 Sputum Respiratory Culture - Preliminary
Usual Respiratory Joan
03/26/24 08:41 Sputum Gram Stain - Preliminary
03/25/24 11:40 Blood/Venous Blood Culture - Preliminary
No Growth in 24 hours- Final report to follow
03/25/24 11:40 Blood/Venous Blood Culture - Preliminary
No Growth in 24 hours- Final report to follow
03/25/24 10:38 Nasal Swab Influenza Types A & B ([facility]) - Final
Negative for Influenza A & B, NAAT
Negative results must be combined with clinical observations
and patient history.
Nucleic Acid Amplification test (NAAT)performed on the
[employer] platform.
[2024-03-27 11:39] VITALS: BP 102/64
[2024-03-27 15:34] VITALS: BP 101/61
--- NOTE | 2024-03-27 16:47 | CM ---
Chart reviewed and patient to return to home when stable, shannon does not have a PCP and states he does not feel he needs visiting nurses at discharge.
Plan; Home when stable.
[2024-03-27] MEDS: LOVENOX 40 MG SC (18:03)
--- NOTE | 2024-03-27 18:05 | W.PN.HOSP.TC ---
Today's Communication/Plan
-
marked improvement past 24 hrs, continue current Rx
Assessment / Plan
Assessment / Plan
#Acute hypoxic and hypercapnic respiratory failure
markedly improved past 24 hrs
#Acute COPD exacerbation
Chest x-ray on admission done negative for pleural effusion or pneumothorax or infiltrate.
Start patient on 6 mg Decadron every 12 hours. Received 10mg Decadron en-route via EMS.
BiPAP as needed
Improvement with IV steroids.
Start patient on bronchodilators standing and as needed
Start patient on azithromycin
Sputum sample
proBNP 735. Troponin negative.
Pulmonary evaluation appreciated
#Tobacco abuse
pt told he absolutely must stop
#Alcohol abuse
#History of polysubstance abuse
Counseled on tobacco and alcohol complete cessation
Alcohol withdrawal protocol
Refused nicotine patch
Continue with Suboxone
#Paroxysmal atrial fibrillation
#Hx of pericardial effusion/pericarditis
not on any rate control or anticoagulation. Monitor on telemetry.
#Multiple sclerosis--continue with Klonopin for spasms
DVT prophylaxis with Lovenox
will allow pt to shower
Anticipated Discharge: 24 - 48 hours
Subjective/Interval History
-
Date of Service: March 27, 2024
Breathing markedly better, asking when he can go home
Objective Data
-
Labs:
Laboratory Results
03/27/24
06:47
WBC 18.3 H
Hgb 12.6 L
Hct 38.1 L
Plt Count 224
Sodium 138
Potassium 4.6
Chloride 102
Carbon Dioxide 27
BUN 23 H
Creatinine 0.6 L
Glucose 117 H
Calcium 9.0
Vital Signs:
Vital Signs
Temp Pulse Resp BP Pulse Ox
97.5 F 68 19 101/61 97
03/27/24 15:34 03/27/24 15:34 03/27/24 15:34 03/27/24 15:34 03/27/24 15:34
I&O
03/26/24 03/27/24 03/28/24
06:59 06:59 06:59
Intake Total 1890 / 1890
Output Total 400 / 400 1200 / 1200
Balance -400 / -400 690 / 690
Review of Systems
-
History Source: Patient and Coordinated Provider
Constitutional: Denies Fever
EENT: Reports No Symptoms Reported
Respiratory: Reports Trouble Breathing (better) and Wheezing
Cardiac: Reports No Symptoms; Denies Chest Pain
Genitourinary: Reports No Symptoms
Physical Exam
-
General: Well Developed, Well Nourished and No Apparent Distress
HEENT: Atraumatic and Moist Mucous Membranes
Respiratory: Wheezes (holoexpiratory wheeze with good air movement)
Cardiac: Regular Rhythm and S1/S2
GI: Soft, Nontender and Nondistended
Musculoskeletal: No Clubbing, No Cyanosis and No Edema
Neuro: Awake, Alert and Oriented
[2024-03-27 19:00] VITALS: BP 118/62
[2024-03-27] MEDS: KLONOPIN 2 MG PO (20:59)
[2024-03-28 03:00] VITALS: BP 112/74
[2024-03-28 07:29] VITALS: BP 113/71
[2024-03-28 07:57] LABS: % Basophils 0.1 % (0-2); % Immature Granulocytes 0.4 % (0-0.5); % Lymphocytes 5.2 % (20.5-51.1); % Monocytes 2.6 % (1.7-9.3); % Neutrophils 91.7 % (42.2-75.2); Absolute Immature Granulocytes 0.1 10^3/uL (0-0.05); Absolute Lymphocytes 0.7 10^3/uL (1.2-3.4); Absolute Monocytes 0.4 10^3/uL (0.1-0.6); Absolute Neutrophils 12.5 10^3/uL (1.4-6.5); Hematocrit 39.2 % (39.0-52.0); Mean Corp Hgb Conc. 33.2 g/dL (33.0-37.0); Mean Corpuscular Hgb 32.5 pg (27.0-31.0); Mean Platelet Volume 9.9 fL (7.4-10.4); Nucleated Red Blood Cells % 0 % (-); Platelet Count 239 10^3/uL (130-400); Red Cell Dist. Width 12.3 % (11.5-14.5); White Blood Cell Count 13.6 10^3/uL (4.8-10.8)
[2024-03-28] MEDS: DUONEB 3 ML INH ×4 (08:10→20:50)
[2024-03-28] MEDS: SUBUTEX 4 MG SL (08:27)
[2024-03-28] MEDS: FOLVITE 1 MG PO (08:27)
[2024-03-28] MEDS: DECADRON 6 MG IV (08:28)
[2024-03-28] MEDS: THIAMINE INJECTION 200 MG IV (08:28)
[2024-03-28 08:29] LABS: Blood Urea Nitrogen 24 mg/dl (9-20); Carbon Dioxide 29 mmol/L (22-30); Chloride 104 mmol/L (98-107); Estimated Creatinine Clearance 108 ml/min; Glucose 118 mg/dl (70-99); Potassium 4.9 mmol/L (3.5-5.1); Sodium 141 mmol/L (135-145); eGFR > 60.00
[2024-03-28] MEDS: ZITHROMAX INFUSION 250 IV (08:29)
--- NOTE | 2024-03-28 09:51 | PTCARENOTE ---
Pulse ox on RA 95% after deep breathing exercises. Denies shortness of breath. Will leave on RA.
--- NOTE | 2024-03-28 10:40 | W.PN.PUL.V3 ---
Today's Communication / Plan
-
Finite course of antibiotics.
Decrease Decadron-hopefully change to prednisone 50 mg in the next 24 hours.
Check rest and exercise oximetry.
Continue nebulizers.
outpatient pulmonary follow-up
Assessment
-
68-year-old man who is a smoker, prior emphysema on CAT scan in 2020 not on inhalers, came complaining of 1 day of shortness of breath that was progressive to minimal effort. Found to have increased work of breathing and bronchospasm in the
emergency room. Required BiPAP therapy. We were consulted for evaluation
Acute respiratory distress due to acute hypoxemic and hypercapnic respiratory failure requiring noninvasive mechanical ventilation
VBG 03/25/2024 7.34//70
UDS positive for benzos and marijuana/buprenorphine
Acute exacerbation of COPD
Chest x-ray: Reviewed no acute infiltrates-hyperinflation.
Normal proBNP
Conditions present prior admission:
Emphysema based on CT chest from 2020: Moderate in degree back in 2020. Upper and lower bronchial thickening. No lung nodules at that time. Moderate pericardial effusion was noted at that time.
Multiple sclerosis per patient report
Tobacco abuse
Almost daily beer use
Former drug user
Echocardiogram in 2020: Normal LVEF. Normal right ventricular size and function. Small pericardial effusion without evidence of hemodynamic compromise. Dilated aortic root 4. 1 cm
Plan
Respiratory status slowly improving
Supplemental oxygen as needed-currently 97% saturation on room air.
Check rest and exercise oximetry
NIV/BiPAP as needed-no longer requiring
Assess discharge supplemental oxygen needs the time of discharge-patient disheartened, however, I explained that usually we can wean this off over several weeks and hopefully we can him back to his baseline-walking his dog 2 miles a day.
Decadron 6 mg IV every 12 hours-reduce and probably change to prednisone 50 mg tomorrow
Duo nebs.
Aspiration precautions.
Mucolytic's
Antitussives if needed.
Cultures reviewed.
Viral tests negative.
Agree with course of azithromycin-complete 5 days
Monitor for alcohol withdrawal-No signs
DVT prophylaxis-on Lovenox.
Nutrition
Increase activity
.
Importance of outpatient pulmonary follow-up reiterated again- needs PFTs, inhalers, wean oxygen and, smoking cessation counseling, yearly low-dose lung cancer screening. CT, etc..
Patient states he cannot drive because of his multiple sclerosis but he will find a ride to the office
Subjective Data
-
Date of Service:
Date of Service: March 28, 2024
Chief Complaint: Pulmonary Follow Up and Dyspnea Follow Up
Subjective:
Feels a little better, less wheezing, less short of breath and recovers faster, no chest pain or abdominal pain
Review of Systems
General: Other ( per HPI)
Objective Data
Data Reviewed
Vital Signs / I&O:
Vital Signs
Temp Pulse Resp BP Pulse Ox
98.6 F 77 16 113/71 95
03/28/24 07:29 03/28/24 08:16 03/28/24 08:16 03/28/24 07:29 03/28/24 09:51
Intake and Output
03/27/24 03/28/24 03/29/24
06:59 06:59 06:59
Intake Total 1890 / 1890 1290 / 1290
Output Total 1200 / 1200
Balance 690 / 690 1290 / 1290
SaO2: 95
Nasal Cannula flow liters per minute: 1
Physical Exam
General: Respiratory Distress (n) and Comfortable
HEENT: Moist Mucous Membranes
Cardiovascular: Regular Rhythm
Respiratory: Clear ( diminished breath sounds, hyperinflation and prolonged expiratory time), Wheeze ( expiratory), Crackles (n), Rhonchi (n), Non-Labored Respirations, Accessory Resp Muscle Use (n) and Stridor (n)
GI: Soft, Non Distended and Non Tender
Neurology: Awake and No Motor Deficits
Skin: Warm, Good Color, Cyanosis (n), Jaundice (n) and Rash (n)
Labs/Micro/Reports
Lab Data
03/28/24 07:24
03/28/24 07:24
Microbiology
03/26/24 08:41 Sputum Respiratory Culture - Final
Usual Respiratory Joan
03/26/24 08:41 Sputum Gram Stain - Final
03/25/24 11:40 Blood/Venous Blood Culture - Preliminary
No Growth in 48 hours- Final report to follow
03/25/24 11:40 Blood/Venous Blood Culture - Preliminary
No Growth in 48 hours- Final report to follow
03/25/24 10:38 Nasal Swab Influenza Types A & B ([facility]) - Final
Negative for Influenza A & B, NAAT
Negative results must be combined with clinical observations
and patient history.
Nucleic Acid Amplification test (NAAT)performed on the
[employer] platform.
[2024-03-28 11:22] VITALS: BP 97/58
[2024-03-28 14:47] VITALS: O2SAT 95
--- NOTE | 2024-03-28 14:55 | CM ---
Chart reviewed and plan is to home when stable.
Plan; Home when stable.
[2024-03-28 15:15] VITALS: BP 96/60
--- NOTE | 2024-03-28 16:15 | W.PN.HOSP.TC ---
Today's Communication/Plan
-
change to oral steroids
Assessment / Plan
Assessment / Plan
#Acute hypoxic and hypercapnic respiratory failure
markedly improved past 24 hrs
#Acute COPD exacerbation
Chest x-ray on admission done negative for pleural effusion or pneumothorax or infiltrate.
Started patient on 6 mg Decadron every 12 hours, dose decreased to 4 mg IV q12h. Received 10mg Decadron en-route via EMS.
will plan to transition to oral steroids tomorrow
BiPAP as needed
Improvement with IV steroids.
Start patient on bronchodilators standing and as needed
Started patient on azithromycin
Sputum sample
proBNP 735. Troponin negative.
Pulmonary evaluation appreciated
#Tobacco abuse
pt told he absolutely must stop
#Alcohol abuse
#History of polysubstance abuse
Counseled on tobacco and alcohol complete cessation
Alcohol withdrawal protocol
Refused nicotine patch
Continue with Suboxone
#Paroxysmal atrial fibrillation
#Hx of pericardial effusion/pericarditis
not on any rate control or anticoagulation. Monitor on telemetry.
#Multiple sclerosis--continue with Klonopin for spasms
DVT prophylaxis with Lovenox
will allow pt to shower
Anticipated Discharge: 24 - 48 hours
Subjective/Interval History
-
Date of Service: March 28, 2024
Breathing better, anxiously awaiting dc
Objective Data
-
Labs:
Laboratory Results
03/28/24
07:24
WBC 13.6 H
Hgb 13.0
Hct 39.2
Plt Count 239
Sodium 141
Potassium 4.9
Chloride 104
Carbon Dioxide 29
BUN 24 H
Creatinine 0.6 L
Glucose 118 H
Calcium 9.0
Vital Signs:
Vital Signs
Temp Pulse Resp BP Pulse Ox
97.5 F 66 18 96/60 95
03/28/24 15:15 03/28/24 15:15 03/28/24 15:15 03/28/24 15:15 03/28/24 15:15
I&O
03/27/24 03/28/24 03/29/24
06:59 06:59 06:59
Intake Total 1890 / 1890 1290 / 1290
Output Total 1200 / 1200
Balance 690 / 690 1290 / 1290
Review of Systems
-
History Source: Patient and Coordinated Provider
Constitutional: Denies Fever
EENT: Reports No Symptoms Reported
Respiratory: Reports Trouble Breathing (better) and Wheezing
Cardiac: Reports No Symptoms; Denies Chest Pain
Genitourinary: Reports No Symptoms
Physical Exam
-
General: Well Developed, Well Nourished and No Apparent Distress
HEENT: Atraumatic and Moist Mucous Membranes
Respiratory: Wheezes (mid to end expiratory wheeze with good air movement)
Cardiac: Regular Rhythm and S1/S2
GI: Soft, Nontender and Nondistended
Musculoskeletal: No Clubbing, No Cyanosis and No Edema
Neuro: Awake, Alert and Oriented
--- NOTE | 2024-03-28 16:46 | RESPNOTE ---
room air resting pulse ox - 95%
room air ambulating pulse ox - 92%
patient required no o2 to maintain spo2 > 88%. Patient ambulated 100 ft
[2024-03-28] MEDS: LOVENOX SC (17:20)
[2024-03-28] MEDS: DECADRON 4 MG IV (19:21)
[2024-03-28] MEDS: VITAMIN B1 100 MG PO (19:22)
[2024-03-28] MEDS: KLONOPIN 2 MG PO (21:25)
[2024-03-28 23:00] VITALS: BP 101/62
[2024-03-29 07:23] VITALS: BP 100/63
[2024-03-29] MEDS: DUONEB 3 ML INH ×2 (08:15→11:16)
[2024-03-29] MEDS: DELTASONE 50 MG PO (08:37)
[2024-03-29] MEDS: FOLVITE 1 MG PO (08:37)
[2024-03-29] MEDS: VITAMIN B1 100 MG PO (08:37)
[2024-03-29] MEDS: ZITHROMAX INFUSION 250 IV (08:38)
[2024-03-29] MEDS: SUBUTEX 4 MG SL (08:39)
[2024-03-29] MEDS: LOVENOX SC (08:40)
--- NOTE | 2024-03-29 10:10 | W.PN.PUL.V3 ---
Today's Communication / Plan
-
.
Increase activity.
Wean oxygen.
Prednisone 50 mg a slow taper.
Discharge on Symbicort 160/4.5-2 puffs twice daily in addition to Albuterol as needed.
Outpatient pulmonary follow-up
Assessment
-
68-year-old man who is a smoker, prior emphysema on CAT scan in 2020 not on inhalers, came complaining of 1 day of shortness of breath that was progressive to minimal effort. Found to have increased work of breathing and bronchospasm in the
emergency room. Required BiPAP therapy. We were consulted for evaluation
Acute respiratory distress due to acute hypoxemic and hypercapnic respiratory failure requiring noninvasive mechanical ventilation
VBG 03/25/2024 7.34/53/70
UDS positive for benzos and marijuana/buprenorphine
Acute exacerbation of COPD
Chest x-ray: Reviewed no acute infiltrates-hyperinflation.
Normal proBNP
Conditions present prior admission:
Emphysema based on CT chest from 2020: Moderate in degree back in 2020. Upper and lower bronchial thickening. No lung nodules at that time. Moderate pericardial effusion was noted at that time.
Multiple sclerosis per patient report
Tobacco abuse
Almost daily beer use
Former drug user
Echocardiogram in 2020: Normal LVEF. Normal right ventricular size and function. Small pericardial effusion without evidence of hemodynamic compromise. Dilated aortic root 4. 1 cm
Plan
Respiratory status continues to improve
Supplemental oxygen as needed-currently 97% saturation on room air..
Check rest and exercise oximetry
NIV/BiPAP as needed-no longer requiring
Assess discharge supplemental oxygen needs the time of discharge-patient disheartened, however, I explained that usually we can wean this off over several weeks and hopefully we can him back to his baseline-walking his dog 2 miles a day.
Decadron 6 mg IV every 12 hours-reduce and probably changed to prednisone 50 mg 03/29/24.
Continue duo nebs
Aspiration precautions.
Mucolytic's
Antitussives if needed.
Cultures reviewed.
Viral tests negative.
Agree with course of azithromycin-complete 5 days
Monitor for alcohol withdrawal-No signs
DVT prophylaxis-on Lovenox.
Nutrition
Increase activity.
Patient stable for discharge from a pulmonary perspective-prednisone taper, Symbicort 160/4.5 and Albuterol as needed
Importance of outpatient pulmonary follow-up reiterated again- needs PFTs, inhalers, wean oxygen and, smoking cessation counseling, yearly low-dose lung cancer screening. CT, etc..
Patient states he cannot drive because of his multiple sclerosis but he will find a ride to the office
Subjective Data
-
Date of Service:
Date of Service: March 29, 2024
Chief Complaint: Pulmonary Follow Up and Dyspnea Follow Up
Subjective:
Much improved from a respiratory perspective, less short of breath, decreased dyspnea exertion, Less wheezing, no chest pain or abdominal pain
Review of Systems
General: Other (per HPI)
Objective Data
Data Reviewed
Vital Signs / I&O:
Vital Signs
Temp Pulse Resp BP Pulse Ox
98.3 F 52 16 100/63 97
03/29/24 07:23 03/29/24 07:23 03/29/24 08:17 03/29/24 07:23 03/29/24 08:40
Intake and Output
03/28/24 03/29/24 03/30/24
06:59 06:59 06:59
Intake Total 1290 / 1290 1200 / 1200
Output Total 1600 / 1600
Balance 1290 / 1290 -400 / -400
SaO2: 97
Nasal Cannula flow liters per minute: 1
Physical Exam
General: Respiratory Distress (n) and Comfortable
HEENT: Moist Mucous Membranes
Cardiovascular: Regular Rhythm
Respiratory: Clear ( diminished breath sounds, hyperinflation and prolonged expiratory time), Wheeze ( expiratory), Crackles (n), Rhonchi (n), Non-Labored Respirations, Accessory Resp Muscle Use (n) and Stridor (n)
GI: Soft, Non Distended and Non Tender
Neurology: Awake and No Motor Deficits
Skin: Warm, Good Color, Cyanosis (n), Jaundice (n) and Rash (n)
Labs/Micro/Reports
Lab Data
03/28/24 07:24
03/28/24 07:24
Microbiology
03/25/24 11:40 Blood/Venous Blood Culture - Preliminary
No Growth in 72 hours- Final report to follow
03/25/24 11:40 Blood/Venous Blood Culture - Preliminary
No Growth in 72 hours- Final report to follow
03/26/24 08:41 Sputum Respiratory Culture - Final
Usual Respiratory Joan
03/26/24 08:41 Sputum Gram Stain - Final
--- NOTE | 2024-03-29 14:46 | W.PN.HOSP.TC ---
Today's Communication/Plan
-
dc to home
Assessment / Plan
Assessment / Plan
#Acute hypoxic and hypercapnic respiratory failure
markedly improved past 24 hrs.
#Acute COPD exacerbation
Chest x-ray on admission done negative for pleural effusion or pneumothorax or infiltrate.
Started patient on 6 mg Decadron every 12 hours, dose decreased to 4 mg IV q12h. Received 10mg Decadron en-route via EMS.
will plan to transition to oral steroids tomorrow
BiPAP as needed
Improvement with IV steroids.
Start patient on bronchodilators standing and as needed
Started patient on azithromycin
Sputum sample
proBNP 735. Troponin negative.
Pulmonary evaluation appreciated, cleared for planned dc
#Tobacco abuse
pt told he absolutely must stop
#Alcohol abuse
#History of polysubstance abuse
Counseled on tobacco and alcohol complete cessation
Alcohol withdrawal protocol
Refused nicotine patch
Continue with Suboxone
#Paroxysmal atrial fibrillation
#Hx of pericardial effusion/pericarditis
not on any rate control or anticoagulation. Monitor on telemetry.
#Multiple sclerosis--continue with Klonopin for spasms
DVT prophylaxis with Lovenox
will allow pt to shower
Pt very anxious about dc [facility]
will dc now. Reviewed with dgt by phone
see dictated note
More than 30 minutes spent in discharge including
Final examination of the patient
Summarizing hospital stay
Instructions for continuing care to all relevant caregivers
Preparation of discharge records, prescriptions, and referral forms
Total time spent (in minutes): 45
Anticipated Discharge: Today
Subjective/Interval History
-
Date of Service: March 29, 2024
Feels much better, anxiously awaiting dc. Had good BM
Objective Data
-
Vital Signs:
Vital Signs
Temp Pulse Resp BP Pulse Ox
98.3 F 52 16 100/63 93
03/29/24 07:23 03/29/24 07:23 03/29/24 11:20 03/29/24 07:23 03/29/24 11:20
I&O
03/28/24 03/29/24 03/30/24
06:59 06:59 06:59
Intake Total 1290 / 1290 1200 / 1200
Output Total 1600 / 1600
Balance 1290 / 1290 -400 / -400
Review of Systems
-
History Source: Patient and Coordinated Provider
Constitutional: Denies Fever
EENT: Reports No Symptoms Reported
Respiratory: Reports Trouble Breathing (better)
Cardiac: Reports No Symptoms; Denies Chest Pain
Genitourinary: Reports No Symptoms
Physical Exam
-
General: Well Developed, Well Nourished and No Apparent Distress
HEENT: Normocephalic, Atraumatic and Moist Mucous Membranes
Respiratory: Wheezes (coarse BS, good air movement)
Cardiac: Regular Rhythm and S1/S2
GI: Soft, Nontender and Nondistended
Musculoskeletal: No Clubbing, No Cyanosis and No Edema
--- NOTE | 2024-03-29 15:07 | CM ---
Patient is for discharge to home today no needs.
Plan; Home today.
[2024-03-29 15:10] VITALS: BP 120/79
[2024-03-29] MEDS: DUONEB INH (15:23)
--- NOTE | 2024-03-29 19:15 | W.DS.TRANS ---
DC Summary - [employer]
-
Discharge Instructions:
Sleep Apnea Risk Low
Discharge Diagnosis/Procedures AECOPD
Diet Regular
Activity No strenuous activity
Driving Restrictions No driving
Bathing Restrictions None
Blood Work CBC, BMP in 1 week
Instructions:
Stand-Alone Forms:
Changes to Home Medications: Yes
Discharge Medications:
DC Medications w/original date entered in [employer]
clonazepam 1 mg tablet 2 mg PO HS Mental Health/Anxiety 03/05/20
buprenorphine 8 mg-naloxone 2 mg sublingual tablet 0.5 tab sublingual DAILY withdrawal 03/25/24
clonazepam 1 mg tablet 1 mg PO DAILYPRN PRN ANXIETY 03/25/24
albuterol sulfate 90 mcg/actuation breath activated powder inhaler,sensor (Proair Digihaler) 90 mcg inhalation Q6H PRN shortness of breath #1 ea 03/29/24
budesonide-formoterol HFA 160 mcg-4.5 mcg/actuation aerosol inhaler (Symbicort) 2 puff inhalation BID #10.2 grams 03/29/24
doxycycline hyclate 100 mg capsule 100 mg PO BID #14 caps 03/29/24
prednisone 10 mg tablet 10 mg PO DIRECTED #45 tabs 03/29/24
Home Medication Changes
Doxycycline started
Prednisone taper started
Symbicort and prn Albuterol started
Pending Results: No
== END 2024-03-29 16:04 | disposition home or self-care (01) | DRG 190 ==
LOC: 4 WEST ACU 13:25
PROVIDERS: ADMITTING PHYSICIAN Hospitalist; ATTENDING PHYSICIAN Internal Medicine; CONSULT PHYSICIAN Internal Medicine Critical Care Medicine; EMERGENCY PHYSICIAN Emergency Medicine
DX: J44.1 Chronic obstructive pulmonary disease with (acute) exacerbation (principal); J96.01 Acute respiratory failure with hypoxia; J96.02 Acute respiratory failure with hypercapnia; Z11.52 Encounter for screening for COVID-19; I48.0 Paroxysmal atrial fibrillation; G35 Multiple sclerosis; Z59.89 Other problems related to housing and economic circumstances
CPT/HCPCS: 71045; 71046; 80048; 80053; 80306; 80307; 81003; 82010; 82077; 82805; 82977; 83735; 83880; 84100; 84484; 85025; 85610; 85730; 87040; 87070; 87205; 87502; 87811; 93005; 94640; 94660; 96365; 96375; 97162; 97166; 97530; 99291

== ENCOUNTER 2024-04-06 11:24 | Emergency (ER) | payer MEDICARE, SELFPAY ==
[2024-04-06 11:57] VITALS: BP 118/72
--- NOTE | 2024-04-06 13:03 | ED.GENMED ---
History of Present Illness
General
Chief Complaint: Fall
Source: patient
Exam Limitations: none
Time Seen by Provider: 04/06/24 12:16
Nursing documentation reviewed up to this point in time: agreed with
History of Present Illness
History of Present Illness:
68-year-old male with past medical history of COPD, atrial fibrillation not on blood thinners who presents to the ER for evaluation after fall. He reports that yesterday he was walking his dog when a neighbors dog ran underneath him and he fell to
the ground. He says he was not bitten by the dog just knocked over. He says he landed on his left side he injured his left shoulder. He also complains of some pain in the right lower back and the left ribs. He says his right shoulder is mildly
sore but not as bad as his left. Denies any head strike and he has not had any headache. Denies any neck pain. He denies any abdominal pain. He denies any pain in the lower extremities.
Past History
Past History
ED Past Medical History: COPD and Other (MS)
ED Past Surgical History: Negative Cardiac
Social History
Tobacco: Smoker
Alcohol: Occasional
Drug: Former user
Personal:
Living: alone
Employment: Retired
Family History
Family History: Other (Noncontributory)
Review of Systems
Review of Systems
All Other Systems: ROS reviewed and negative except as documented in HPI and ROS
Respiratory: Denies trouble breathing
Cardiac: Reports chest pain (Rib pain)
ABD/GI: Denies abdominal pain, nausea or vomiting
Musculoskeletal: Reports joint pain (Shoulder pain) and back pain; Denies neck pain
Neurological: Denies headache
Phy Exam
Physical Exam
Physical Exam:
General: Awake, alert, oriented x3; no acute distress
Head: Normocephalic, atraumatic
Eyes: Conjunctiva normal
Throat: Airway intact, handling secretions
Neck: Trachea midline, no cervical spine tenderness
Back: No midline tenderness thoracic or lumbar spine; right paraspinal tenderness
Lungs: Clear to auscultation bilaterally, no wheezing, rales, rhonchi
Heart: Regular rate; mild left chest wall tenderness roughly ribs 4 and 5, no bruising
Abd: Soft, non distended, nontender
Neuro: Cranial nerves grossly intact, speech fluid
Skin: no rash
Extremities: Mild anterior tenderness of the left shoulder and pain with extremes of flexion and abduction; no tenderness in the humerus or elbow, no forearm tenderness; rest of extremities atraumatic no tenderness; no edema in extremities, equal
pulses in all extremities
Scores
Heart Failure Risk
Heart Failure Risk Score: Not Applicable
Heart Score for Chest Pain Patients
STEMI patient?: Not applicable
Withdrawal Assessment of Alcohol
Withdrawal Assessment Completed?: Not applicable
Course
Orders/Labs/Results
Orders:
Orders
04/06/24 12:29
CR Lumbar Spine 2 Or 3 Views Urgent
Comment:
Reason For Exam: back pain s/p fall
CR Ribs-left 3 Vw W/pa Chest Urgent
Comment:
Reason For Exam: left rib pain s/p fall
CR Shoulder, Trauma - Left Urgent
Reason For Exam: shoulder pain s/p fall
Vital Signs
Initial and Last Documented VS:
Initial Vital Signs
Temp Pulse Resp BP Pulse Ox
36.8 C 100 16 118/72 98
04/06/24 11:57 04/06/24 11:57 04/06/24 11:57 04/06/24 11:57 04/06/24 11:57
Last Documented Vital Signs
Temp Pulse Resp BP Pulse Ox
36.8 C 100 18 118/72 98
04/06/24 11:57 04/06/24 11:57 04/06/24 12:23 04/06/24 11:57 04/06/24 11:57
MDM/Problems Addressed
Differential Diagnosis Includes:
Shoulder pain: Contusion, strain/sprain, fracture, dislocation
Back pain: Strain, fracture, radiculopathy
Rib pain: Bruised ribs, broken rib, less likely pneumothorax
MDM/Problems Addressed:
68-year-old male presents after fall�was pushed over by another dog he says. He injured his left shoulder, left ribs, low back. Vitals and exam as above. Check x-ray of the shoulder, ribs, back. Offered Tylenol/Motrin patient declined. Reassess
after the above. No indication for head imaging with no reported trauma, no signs of objective trauma, no blood thinners, no headache and normal GCS after 24 hours.
X-ray shoulder, lumbar spine, ribs reviewed by me and no acute posttraumatic pathology noted. Stable for discharge, advised regarding RICE, Tylenol as needed. Follow-up with PCP. All questions answered.
*Radiology
Radiology exam reviewed: preliminary read by ED provider
*Pulse Oximetry
Patient hypoxic: no
*Critical Care Note
Total Time (30-74mins, 75-104mins- exclusive of procedures): Not Applicable
Data Reviewed
Source: patient
Further Testing Considered But Not Given:
Considered CT head
ED Attending Note
-
Portions of this chart may have been created with voice recognition software.� Occasional wrong word or��sound alike� substitutions may have occurred due to the inherent limitations of voice recognition software.
Discharge Plan
Departure
Patient Disposition: Home (Routine Discharge)
Date of Disposition: 04/06/24
Time of Disposition: 13:38
Patient with high blood pressure during this ER visit?: No
Discharge Problem:
Sprain of left shoulder, Low back strain, Bruised ribs
Instructions: Back Muscle Strain, Shoulder Sprain ED, Rib fracture or bruised rib - ED discharge instructions
Prescriptions:
No Action
clonazepam 1 MG tablet
2 mg PO HS
buprenorphine-naloxone 8-2 mg Tablet, Sublingual
0.5 tab SUBLINGUAL DAILY
clonazepam 1 mg Tablet
1 mg PO DAILYPRN PRN (Reason: ANXIETY)
budesonide-formoterol [Symbicort] 160-4.5 mcg/actuation HFA aerosol inhaler
2 puff inhalation BID Qty: 10.2 2RF
prednisone 10 mg tablet
10 mg PO DIRECTED Qty: 45 0RF
Rx Instructions:
5 tabs x 3 days, then 4 tabs x 3 days, then 3 tabs x 3 days, then 2 tabs x 3 day,then 1 daily x 3 day,then stop
Proair Digihaler 90 mcg/actuation aero powdr breath act w/sensor
90 mcg inhalation Q6H PRN (Reason: shortness of breath) Qty: 1 0RF
doxycycline hyclate 100 mg capsule
100 mg PO BID Qty: 14 0RF
Referrals:
UNKNOWN - PT DOES,NOT KNOW [Family Provider] -
Activity Restrictions/Additional Instructions:
Thank you for visiting the Emergency Department at [facility].
1. Please schedule a follow up appointment as directed. Call first thing tomorrow morning to make an appointment.
2. If indicated, please take your medications as instructed and indicated on discharge paperwork.
3. If any of your symptoms do not improve, or persist, or become more severe within 6-12 hours, please return to the emergency department for further care.
4. Please return to the emergency department if you develop a headache, neck pain/stiffness, fever greater than 100.4F, chest pain, shortness of breath, persistent nausea, vomiting, slurred speech, difficulty walking, numbness/tingling, weakness,
signs of infection or any other symptoms that are worrisome to you.
Please call [phone] if you have any questions.
Interventions
Interventions:
*Risk Screen - Suicide Last Done: 04/06/24 11:57
*General Assessment Last Done: 04/06/24 12:25
*Neglect/Abuse Screening Last Done: 04/06/24 11:57
ED- Fall Risk Assessment Last Done: 04/06/24 12:24
ED-Musculoskeletal Assessment Last Done: 04/06/24 12:24
ED- Neurological Assessment Last Done: 04/06/24 12:24
ED-Skin Assessment Last Done: 04/06/24 12:24
Discharge Date and Time
Print Language: LAO
== END 2024-04-06 14:01 | disposition home or self-care (01) ==
LOC: EMR 11:24
PROVIDERS: EMERGENCY PHYSICIAN Emergency Medicine
DX: S43.402A Unspecified sprain of left shoulder joint, initial encounter (principal); S39.012A Strain of muscle, fascia and tendon of lower back, initial encounter; S20.212A Contusion of left front wall of thorax, initial encounter; W19.XXXA Unspecified fall, initial encounter; J44.9 Chronic obstructive pulmonary disease, unspecified; I48.91 Unspecified atrial fibrillation; F17.200 Nicotine dependence, unspecified, uncomplicated
CPT/HCPCS: 99283; 71101; 72100; 73030